=== PATIENT | male | born 1960 | race Hispanic/Latino ===

== ENCOUNTER 2021-08-16 14:02 | Inpatient (IN) | payer SELFPAY ==
[2021-08-16 16:50] VITALS: BMI 30.9
[2021-08-16] MEDS ORDERED: Aggrastat 12.5 MG/250 ML 250 ML IVPB SCH (17:00)
[2021-08-16] MEDS ORDERED: Sodium Chloride 0.9% 1,000 ML IV SCH (17:00)
[2021-08-16] MEDS ORDERED: FLU VACC QS2021-22(6MOS UP)/PF 60 MCG/0.5 ML SYRINGE IM ONE (17:15)
[2021-08-16 21:34] LABS: Troponin I 43.639 ng/mL (< 0.028)
[2021-08-16] MEDS: Atorvastatin Calcium 40 MG TAB PO SCH (21:59)
[2021-08-17 03:56] LABS: #Basophils 0.1 10x3/uL (0.0-0.2); #Eosinphils 0.3 10x3/uL (0.0-0.5); #Monocytes 1.1 10x3/uL (0.0-1.1); #Neutrophils 7.1 10x3/uL (1.5-8.4); %Basophils 0.9 % (0.0-2.0); %Eosinophils 2.4 % (0.0-6.0); %Lymphocytes 17.3 % (18.0-47.0); %Monocytes 10.3 % (0.0-10.0); %Neutrophils 68.7 % (40.0-75.0); Hemoglobin 13.3 g/dL (13.5-17.5); Mean Corpuscular HGB CONC 32.4 g/dL (32.0-36.0); Mean Corpuscular Hemoglobin 29.4 pg (27.0-33.0); Mean Corpuscular Volume 90.9 fl (81.2-95.1); Mean Platelet Volume 10.9 fl (7.4-10.4); Platelet Count 247 10x3/uL (150-450); Red Blood Cell (RBC) Count 4.52 10x6/uL (4.32-5.72); White Blood Cell (WBC) Count 10.4 10x3/uL (3.5-10.5)
[2021-08-17 04:12] LABS: ALT (SGPT) 70 U/L (8-55); AST (SGOT) 103 U/L (5-34); Albumin 3.5 g/dL (3.5-5.0); Alkaline Phosphatase 95 U/L (40-110); Anion Gap 13 mmol/L (10-20); BUN (Urea Nitrogen) 15 mg/dL (8.4-25.7); Bilirubin, Total 0.6 mg/dL (0.2-1.2); Calc. Creatinine Clearance 118 mL/min (70-130); Calcium 8.2 mg/dL (7.8-10.44); Carbon Dioxide 21 mmol/L (22-29); Chloride 110 mmol/L (98-107); Globulin 2.2 g/dL (2.4-3.5); Glucose 102 mg/dL (70-105); Potassium 4.2 mmol/L (3.5-5.1); Protein, Total 5.7 g/dL (6.0-8.3); Sodium 140 mmol/L (136-145)
[2021-08-17 05:12] LABS: Critical Call Chem Troponin I RESULT DECREASING; Troponin I 31.793 ng/mL (< 0.028)
[2021-08-17] MEDS: Clopidogrel Bisulfate 75 MG TAB PO SCH (08:45)
[2021-08-17] MEDS: Aspirin 81 mg Enteric Coated Tablet PO SCH (08:45)
[2021-08-17] MEDS: Lisinopril 10 MG TAB PO SCH (08:45)
[2021-08-17] MEDS ORDERED: DOPamine/D5W 400 mg/250 ml PREMIX ONE (14:07)
[2021-08-17] MEDS: Atorvastatin Calcium 40 MG TAB PO SCH (21:48)
[2021-08-18] MEDS ORDERED: Acetaminophen 325 MG TAB PO PRN (01:49)
[2021-08-18 05:52] LABS: Anion Gap 11 mmol/L (10-20); BUN (Urea Nitrogen) 15 mg/dL (8.4-25.7); Calc. Creatinine Clearance 114 mL/min (70-130); Calcium 8.4 mg/dL (7.8-10.44); Carbon Dioxide 23 mmol/L (22-29); Chloride 107 mmol/L (98-107); Glucose 103 mg/dL (70-105); Potassium 3.9 mmol/L (3.5-5.1); Sodium 137 mmol/L (136-145)
[2021-08-18 05:56] LABS: ALT (SGPT) 59 U/L (8-55); AST (SGOT) 51 U/L (5-34); Albumin 3.5 g/dL (3.5-5.0); Alkaline Phosphatase 92 U/L (40-110); Bilirubin, Direct 0.3 mg/dL (0.1-0.3); Bilirubin, Total 0.8 mg/dL (0.2-1.2); Cardiac Risk 4.1 (Less than 4.5); Cholesterol 120 mg/dl (< 200 Desired); HDL Cholesterol 29 mg/dL (>60 Neg Risk); LDL Cholesterol, Calculated 73 mg/dL; Protein, Total 6.3 g/dL (6.0-8.3); Triglycerides 88 mg/dL (Less than 150)
[2021-08-18] MEDS: Aspirin 81 mg Enteric Coated Tablet PO SCH (08:23)
[2021-08-18] MEDS: Lisinopril 10 MG TAB PO SCH (08:23)
[2021-08-18] MEDS: Clopidogrel Bisulfate 75 MG TAB PO SCH (08:23)
[2021-08-18 12:01] VITALS: BP 117/65; TEMP 98.1
== END 2021-08-18 12:59 | disposition home or self-care (01) | DRG 249 ==
LOC: CSHCCL 14:02 → CSHIMCU 16:22 → CSHTELE 08-17 18:00
PROVIDERS: ADMIT Specialist; ATTEND Specialist
PROC: 02713EZ Dilation of Coronary Artery, Two Arteries with Two Intraluminal Devices, Percutaneous Approach (ICD-10-PCS; principal; 2021-08-16)
PROC: 02C03ZZ Extirpation of Matter from Coronary Artery, One Artery, Percutaneous Approach (ICD-10-PCS; 2021-08-16)
PROC: 4A023N7 Measurement of Cardiac Sampling and Pressure, Left Heart, Percutaneous Approach (ICD-10-PCS; 2021-08-16)
PROC: B2111ZZ Fluoroscopy of Multiple Coronary Arteries using Low Osmolar Contrast (ICD-10-PCS; 2021-08-16)
DX: I21.19 ST elevation (STEMI) myocardial infarction involving other coronary artery of inferior wall (principal); F17.210 Nicotine dependence, cigarettes, uncomplicated; I10 Essential (primary) hypertension; I25.10 Atherosclerotic heart disease of native coronary artery without angina pectoris
CPT/HCPCS: 36415; 80048; 80053; 80061; 80076; 84484; 85025; 85347; 92941; 93005; 93010; 93306; 93454; 99152; 99153; C1876; C1887; J1265; J3246; J7050

== ENCOUNTER 2022-04-09 14:36 | Observation (INO) | payer BC ==
[2022-04-09 16:17] VITALS: BMI 33.4
[2022-04-09] MEDS ORDERED: Ondansetron PF 4 MG/2 ML Vial IVP PRN (16:33)
[2022-04-09] MEDS ORDERED: Acetaminophen 325 MG TAB PO PRN (16:33)
[2022-04-09] MEDS ORDERED: Ondansetron ODT 4 MG TAB PO PRN (16:33)
[2022-04-09] MEDS: Sodium Chloride 0.9% 1,000 ML IV SCH (16:52)
[2022-04-09] MEDS: Famotidine 20 MG TAB PO SCH (20:32)
[2022-04-10 04:48] LABS: #Basophils 0.1 10x3/uL (0.0-0.2); #Eosinphils 0.3 10x3/uL (0.0-0.5); #Monocytes 0.7 10x3/uL (0.0-1.1); #Neutrophils 4.3 10x3/uL (1.5-8.4); %Basophils 1.3 % (0.0-2.0); %Eosinophils 3.7 % (0.0-6.0); %Lymphocytes 29.6 % (18.0-47.0); %Monocytes 9.3 % (0.0-10.0); %Neutrophils 55.6 % (40.0-75.0); Hemoglobin 13.1 g/dL (13.5-17.5); Mean Corpuscular Hemoglobin 30.2 pg (27.0-33.0); Mean Corpuscular Volume 91.5 fl (81.2-95.1); Mean Platelet Volume 10.9 fl (7.4-10.4); Platelet Count 238 10x3/uL (150-450); RBC Distribution Width 13.7 % (11.5-14.5); Red Blood Cell (RBC) Count 4.34 10x6/uL (4.32-5.72); White Blood Cell (WBC) Count 7.6 10x3/uL (3.5-10.5)
[2022-04-10 04:52] LABS: Anion Gap 12 mmol/L (10-20); BUN (Urea Nitrogen) 35 mg/dL (8.4-25.7); CK (CPK) 457 U/L (30-200); Calc. Creatinine Clearance 74 mL/min (70-130); Calcium 8.3 mg/dL (7.8-10.44); Carbon Dioxide 21 mmol/L (22-29); Chloride 110 mmol/L (98-107); Estimated GFR 60; Glucose 104 mg/dL (70-105); Potassium 4.8 mmol/L (3.5-5.1); Sodium 138 mmol/L (136-145)
[2022-04-10] MEDS: Sodium Chloride 0.9% 1,000 ML IV SCH (06:15)
[2022-04-10] MEDS ORDERED: Meclizine HCl 25 MG TAB PO PRN (07:46)
[2022-04-10] MEDS: Famotidine 20 MG TAB PO SCH (11:05)
[2022-04-10 12:17] VITALS: BP 116/56; TEMP 98
[2022-04-10] MEDS ORDERED: Atorvastatin Calcium 40 MG TAB PO SCH (21:00)
== END 2022-04-10 16:10 | disposition home or self-care (01) ==
LOC: INTOOBSV 15:41 → CSHTELE 15:41
PROVIDERS: ADMIT Family Medicine; ATTEND Family Medicine
DX: N17.9 Acute kidney failure, unspecified (principal); R25.2 Cramp and spasm; E86.0 Dehydration; I10 Essential (primary) hypertension; E78.5 Hyperlipidemia, unspecified; I25.10 Atherosclerotic heart disease of native coronary artery without angina pectoris; I25.2 Old myocardial infarction; Z87.891 Personal history of nicotine dependence; Z20.822 Contact with and (suspected) exposure to COVID-19; Z79.899 Other long term (current) drug therapy; Z95.5 Presence of coronary angioplasty implant and graft
CPT/HCPCS: 36415; 80048; 82550; 85025; 94760; G0378; J7050; U0003; U0005